=== PATIENT | male | born 1975 | race Caucasian/White ===

== ENCOUNTER → 2016-10-25 | Outpatient (CLI) | payer OTHER ==
[~2016-10-25] MED LIST: NOHOMEMEDICATIONS
== END ==
LOC: MRI 14:22
DX: M65.811 Other synovitis and tenosynovitis, right shoulder (principal); M25.511 Pain in right shoulder

== ENCOUNTER → 2020-10-07 | Outpatient (CLI) | payer OTHER | LOC: CAT 08:10 | PROVIDERS: ATTEND Family Medicine | DX: Z13.6 Encounter for screening for cardiovascular disorders (principal); I25.10 Atherosclerotic heart disease of native coronary artery without angina pectoris; E78.00 Pure hypercholesterolemia, unspecified ==